=== PATIENT | female | born 1945 | race Caucasian/White ===

== ENCOUNTER 2021-07-26 13:31 | Inpatient (IN) | payer MEDICARE ==
[2021-07-26 14:39] LABS: #Eosinphils 0.3 thou/uL (0.0-0.7); #Lymphocytes 1.7 thou/uL (1.20-3.40); #Monocytes 1.3 thou/uL (0.11-0.59); #Neutrophils 7.7 thou/uL (1.40-6.50); %Basophils 0.3 % (0.0-1.0); %Eosinophils 2.9 % (0.0-10.0); %Lymphocytes 15.2 % (21.0-51.0); %Monocytes 11.4 % (0.0-10.0); %Neutrophils 70.2 % (42.0-75.0); Hemoglobin 14.2 g/dL (12.0-16.0); Mean Corpuscular HGB CONC 33.2 g/dL (32.0-36.0); Mean Corpuscular Hemoglobin 32.7 pg (27.0-31.0); Mean Corpuscular Volume 98.5 fL (78.0-98.0); Mean Platelet Volume 7.5 fL (7.4-10.4); Platelet Count 233 thou/uL (130-400); RBC Distribution Width 11.3 % (11.5-14.5); Red Blood Cell (RBC) Count 4.34 mill/uL (4.20-5.40)
[2021-07-26] MEDS ORDERED: Metoprolol Tartrate 5 MG/5 ML VIAL ONE (14:43)
[2021-07-26 14:47] LABS: INR-International Normal Ratio 1.1; Prothrombin Time 14.3 sec (12.0-14.7)
[2021-07-26 14:48] LABS: PTT 24.7 sec (22.9-36.1)
[2021-07-26 15:05] LABS: ALT (SGPT) 14 U/L (8-55); AST (SGOT) 13 U/L (5-34); Albumin 3.7 g/dL (3.4-4.8); Alkaline Phosphatase 42 U/L (40-110); Anion Gap 17 mmol/L (10-20); BUN (Urea Nitrogen) 13 mg/dL (9.8-20.1); Bilirubin, Total 0.6 mg/dL (0.2-1.2); Calc. Creatinine Clearance 0 mL/min (70-130); Calcium 9.5 mg/dL (7.8-10.44); Carbon Dioxide 21 mmol/L (23-31); Chloride 103 mmol/L (98-107); Globulin 3.5 g/dL (2.4-3.5); Glucose 148 mg/dL (83-110); Potassium 3.9 mmol/L (3.5-5.1); Protein, Total 7.2 g/dL (5.8-8.1); Sodium 137 mmol/L (136-145)
[2021-07-26 16:23] LABS: Bilirubin Negative (Negative); Blood, Urine Negative (Negative); Clarity Clear (Clear); Glucose, Urine (Dipstick) Normal (Negative); Ketone, Urine Negative (Negative); Leukocyte Negative Leu/uL (Negative); Nitrite Negative (Negative); Protein, Urine (Dipstick) Negative (Neg-Trace); Specific Gravity, Urine 1.035 (1.002-1.036); Urobilinogen Normal mg/dL (Less than 2); pH, Urine 7.5 (5.0-9.0)
[2021-07-26 16:32] LABS: Amphetamine Not Detected (NotDetected); Barbiturates Screen Not Detected (NotDetected); Benzodiazepine Screen Not Detected (NotDetected); Cocaine Metabolite Screen Not Detected (NotDetected); Methadone Not Detected (NotDetected); Methamphetamine Not Detected (NotDetected); Opiate Screen Not Detected (NotDetected); Oxycodone Screen Not Detected (NotDetected); Phencyclidine (PCP) Not Detected (NotDetected); THC/Cannabinoid Screen Not Detected (NotDetected); Tricyclic Screen Not Detected (NotDetected)
[2021-07-26 16:37] LABS: Magnesium 1.9 mg/dL (1.6-2.6)
[2021-07-26 16:38] LABS: Acetaminophen Less than 6.0 mcg/mL (10.0-30.0); Alcohol Less than 10 mg/dL (Less than 10); Salicylate Less than 8.0 mg/dL (15.0-30.0)
[2021-07-26] MEDS ORDERED: Ondansetron ODT 4 MG TAB PO PRN (18:02)
[2021-07-26] MEDS ORDERED: hydrALAZINE 20 MG/ML VIAL SLOW IVP PRN (18:03)
[2021-07-26 18:29] VITALS: BMI 31.5
[2021-07-27 05:58] LABS: #Basophils 0.1 thou/uL (0.0-0.2); #Eosinphils 0.3 thou/uL (0.0-0.7); #Lymphocytes 1.7 thou/uL (1.20-3.40); #Monocytes 1.3 thou/uL (0.11-0.59); #Neutrophils 7.1 thou/uL (1.40-6.50); %Basophils 0.6 % (0.0-1.0); %Eosinophils 3.2 % (0.0-10.0); %Lymphocytes 15.9 % (21.0-51.0); %Monocytes 12.3 % (0.0-10.0); %Neutrophils 67.9 % (42.0-75.0); Hemoglobin 13.3 g/dL (12.0-16.0); Mean Corpuscular HGB CONC 33.4 g/dL (32.0-36.0); Mean Corpuscular Hemoglobin 32.7 pg (27.0-31.0); Mean Platelet Volume 7.5 fL (7.4-10.4); Platelet Count 234 thou/uL (130-400); RBC Distribution Width 11.3 % (11.5-14.5); Red Blood Cell (RBC) Count 4.08 mill/uL (4.20-5.40); White Blood Cell (WBC) Count 10.4 thou/uL (4.8-10.8)
[2021-07-27 06:16] LABS: Anion Gap 14 mmol/L (10-20); BUN (Urea Nitrogen) 11 mg/dL (9.8-20.1); Calc. Creatinine Clearance 86 mL/min (70-130); Calcium 9.2 mg/dL (7.8-10.44); Carbon Dioxide 24 mmol/L (23-31); Cardiac Risk 2.7 (Less than 4.5); Chloride 103 mmol/L (98-107); Cholesterol 128 mg/dl (< 200 Desired); Glucose 104 mg/dL (83-110); HDL Cholesterol 47 mg/dL (>60 Neg Risk); LDL Cholesterol, Calculated 66 mg/dL; Magnesium 1.9 mg/dL (1.6-2.6); Potassium 3.9 mmol/L (3.5-5.1); Sodium 137 mmol/L (136-145); Triglycerides 77 mg/dL (Less than 150)
[2021-07-27 06:20] LABS: Hemoglobin A1c 5.7 % (4.0-6.0)
[2021-07-27] MEDS ORDERED: Aspirin 300 MG Suppository PR SCH (09:00)
[2021-07-27] MEDS ORDERED: Aspirin 325 MG TAB PO SCH (09:45)
[2021-07-27 14:18] LABS: SARS-CoV-2 PCR by NAA Not Detected (NotDetected)
[2021-07-27] MEDS: Diltiazem 125 MG in Sodium Chloride 0.9% 100 ML IVPB SCH (19:56)
[2021-07-27] MEDS: Megestrol Acetate 40 MG TAB PO SCH (20:30)
[2021-07-27] MEDS: Atorvastatin Calcium 40 MG TAB PO SCH (20:30)
[2021-07-28 05:36] LABS: #Eosinphils 0.4 thou/uL (0.0-0.7); #Lymphocytes 1.5 thou/uL (1.20-3.40); #Monocytes 1.6 thou/uL (0.11-0.59); #Neutrophils 7.9 thou/uL (1.40-6.50); %Basophils 0.4 % (0.0-1.0); %Eosinophils 3.5 % (0.0-10.0); %Lymphocytes 13.1 % (21.0-51.0); %Monocytes 13.9 % (0.0-10.0); %Neutrophils 69.1 % (42.0-75.0); Hemoglobin 12.8 g/dL (12.0-16.0); Mean Corpuscular HGB CONC 33.3 g/dL (32.0-36.0); Mean Corpuscular Hemoglobin 32.7 pg (27.0-31.0); Mean Corpuscular Volume 98.2 fL (78.0-98.0); Mean Platelet Volume 7.1 fL (7.4-10.4); Platelet Count 222 thou/uL (130-400); RBC Distribution Width 11.4 % (11.5-14.5); White Blood Cell (WBC) Count 11.5 thou/uL (4.8-10.8)
[2021-07-28] MEDS: Levothyroxine Sodium 125 MCG TAB PO SCH (05:47)
[2021-07-28 05:55] LABS: Anion Gap 11 mmol/L (10-20); BUN (Urea Nitrogen) 10 mg/dL (9.8-20.1); Calc. Creatinine Clearance 90 mL/min (70-130); Calcium 9.1 mg/dL (7.8-10.44); Carbon Dioxide 26 mmol/L (23-31); Chloride 103 mmol/L (98-107); Glucose 116 mg/dL (83-110); Potassium 3.7 mmol/L (3.5-5.1); Sodium 136 mmol/L (136-145)
[2021-07-28 06:14] LABS: Free T4 (Free Thyroxine) 1.04 ng/dL (0.70-1.48); Thyroid Stimulating Hormone 0.1935 uIU/mL (0.35-4.94)
[2021-07-28] MEDS: Megestrol Acetate 40 MG TAB PO SCH ×2 (08:28→21:03)
[2021-07-28] MEDS: Clopidogrel Bisulfate 75 MG TAB PO SCH (08:28)
[2021-07-28] MEDS: Lisinopril 20 MG TAB PO SCH (08:28)
[2021-07-28] MEDS: Atenolol 50 MG TAB PO SCH (08:28)
[2021-07-28] MEDS: Diltiazem 125 MG in Sodium Chloride 0.9% 100 ML IVPB SCH (08:38)
[2021-07-28] MEDS ORDERED: Aspirin 325 MG TAB PO SCH (09:00)
[2021-07-28] MEDS: Atorvastatin Calcium 40 MG TAB PO SCH (21:03)
[2021-07-29] MEDS: Levothyroxine Sodium 125 MCG TAB PO SCH (05:40)
[2021-07-29] MEDS: Megestrol Acetate 40 MG TAB PO SCH ×2 (09:27→20:22)
[2021-07-29] MEDS: Aspirin 81 mg Enteric Coated Tablet PO SCH (09:28)
[2021-07-29] MEDS: Clopidogrel Bisulfate 75 MG TAB PO SCH (09:28)
[2021-07-29] MEDS: Lisinopril 20 MG TAB PO SCH (09:28)
[2021-07-29] MEDS ORDERED: Digoxin 0.5 MG/2 ML AMP SLOW IVP SCH (09:30)
[2021-07-29] MEDS ORDERED: Diltiazem 125 MG in Sodium Chloride 0.9% 100 ML IVPB SCH (09:30)
[2021-07-29] MEDS ORDERED: Atenolol 50 MG TAB PO SCH (09:45)
[2021-07-29] MEDS: Atenolol 50 MG TAB PO SCH (10:20)
[2021-07-29] MEDS: Atorvastatin Calcium 40 MG TAB PO SCH (20:22)
[2021-07-30] MEDS: Levothyroxine Sodium 125 MCG TAB PO SCH (05:15)
[2021-07-30] MEDS: Aspirin 81 mg Enteric Coated Tablet PO SCH (08:32)
[2021-07-30] MEDS: Clopidogrel Bisulfate 75 MG TAB PO SCH (08:32)
[2021-07-30] MEDS: Megestrol Acetate 40 MG TAB PO SCH ×2 (08:33→22:40)
[2021-07-30] MEDS: Lisinopril 20 MG TAB PO SCH (08:34)
[2021-07-30] MEDS ORDERED: Atenolol 50 MG TAB PO SCH (09:00)
[2021-07-30] MEDS ORDERED: Apixaban 5 MG TAB PO SCH ×2 (12:30→12:45)
[2021-07-30] MEDS: Aggrenox 200-25mg CAP PO SCH (22:40)
[2021-07-30] MEDS: Apixaban 5 MG TAB PO SCH (22:40)
[2021-07-30] MEDS: Atorvastatin Calcium 40 MG TAB PO SCH (22:40)
[2021-07-31] MEDS: Levothyroxine Sodium 125 MCG TAB PO SCH (06:32)
[2021-07-31] MEDS: Clopidogrel Bisulfate 75 MG TAB PO SCH (08:36)
[2021-07-31] MEDS: Lisinopril 20 MG TAB PO SCH (08:36)
[2021-07-31] MEDS: Aggrenox 200-25mg CAP PO SCH (08:36)
[2021-07-31] MEDS: Megestrol Acetate 40 MG TAB PO SCH (08:37)
[2021-07-31] MEDS: Apixaban 5 MG TAB PO SCH (08:37)
[2021-07-31 11:33] VITALS: TEMP 97.7
[2021-07-31] MEDS ORDERED: Atenolol 50 MG TAB PO SCH (12:00)
[2021-07-31 13:26] VITALS: BP 150/77
[2021-08-01] MEDS ORDERED: Atenolol 50 MG TAB PO SCH (09:00)
== END 2021-07-31 12:50 | disposition home health service (06) | DRG 65 ==
LOC: ERS 13:31 → NEURO 16:07
PROVIDERS: ADMIT Hospitalist; ATTEND Family Medicine
DX: I63.412 Cerebral infarction due to embolism of left middle cerebral artery (principal); I48.19 Other persistent atrial fibrillation; I10 Essential (primary) hypertension; I25.10 Atherosclerotic heart disease of native coronary artery without angina pectoris; E78.5 Hyperlipidemia, unspecified; R47.81 Slurred speech; R47.1 Dysarthria and anarthria; Z20.822 Contact with and (suspected) exposure to COVID-19; G93.9 Disorder of brain, unspecified; I65.21 Occlusion and stenosis of right carotid artery; R47.01 Aphasia; R29.702 NIHSS score 2; D72.829 Elevated white blood cell count, unspecified; F10.10 Alcohol abuse, uncomplicated; I25.2 Old myocardial infarction; Z79.82 Long term (current) use of aspirin; Z79.890 Hormone replacement therapy; Z79.899 Other long term (current) drug therapy
CPT/HCPCS: 36415; 36416; 70450; 70496; 70498; 70551; 71045; 80048; 80053; 80061; 80306; 80307; 81003; 83036; 83605; 83735; 83880; 84439; 84443; 84484; 85025; 85610; 85730; 93005; 96374; J1160; J3490; S0179; U0003; U0005

== ENCOUNTER 2021-09-22 12:13 | Outpatient (CLI) | payer MEDICARE ==
[2021-09-22 13:49] LABS: #Basophils 0.1 10x3/uL (0.0-0.2); #Eosinphils 0.6 10x3/uL (0.0-0.5); #Monocytes 1.3 10x3/uL (0.0-1.1); #Neutrophils 6.9 10x3/uL (1.5-8.4); %Basophils 0.9 % (0.0-2.0); %Eosinophils 5.8 % (0.0-6.0); %Monocytes 12.7 % (0.0-10.0); %Neutrophils 66.3 % (40.0-75.0); Hemoglobin 12.5 g/dL (12.0-15.5); Mean Corpuscular HGB CONC 31.9 g/dL (32.0-36.0); Mean Corpuscular Hemoglobin 31.2 pg (27.0-33.0); Mean Corpuscular Volume 97.8 fl (81.6-98.3); Mean Platelet Volume 10.8 fl (7.4-10.4); Platelet Count 228 10x3/uL (150-450); RBC Distribution Width 12.6 % (11.5-14.5); Red Blood Cell (RBC) Count 4.01 10x6/uL (3.90-5.03); White Blood Cell (WBC) Count 10.5 10x3/uL (3.5-10.5)
[2021-09-22 14:13] LABS: ALT (SGPT) 14 U/L (8-55); AST (SGOT) 17 U/L (5-34); Albumin 3.9 g/dL (3.4-4.8); Alkaline Phosphatase 45 U/L (40-110); Anion Gap 14 mmol/L (10-20); BUN (Urea Nitrogen) 13 mg/dL (9.8-20.1); Bilirubin, Total 0.8 mg/dL (0.2-1.2); Calc. Creatinine Clearance 0 mL/min (70-130); Calcium 8.8 mg/dL (7.8-10.44); Carbon Dioxide 25 mmol/L (23-31); Chloride 103 mmol/L (98-107); Globulin 3.1 g/dL (2.4-3.5); Glucose 130 mg/dL (83-110); Potassium 3.8 mmol/L (3.5-5.1); Sodium 138 mmol/L (136-145)
[2021-09-23 13:14] LABS: SARS-CoV-2 PCR by NAA DETECTED (NotDetected)
== END 2021-09-22 12:14 | disposition home or self-care (01) ==
LOC: LABBT 12:13
PROVIDERS: ATTEND Internal Medicine Cardiovascular Disease
DX: U07.1 COVID-19 (principal); Z01.818 Encounter for other preprocedural examination
CPT/HCPCS: 80053; 85025; 93005; U0003; U0005; 93010

== ENCOUNTER 2021-10-25 05:51 | Day surgery (SDC) | payer MEDICARE ==
[2021-10-20 12:47] VITALS: BMI 29.7
[2021-10-25] MEDS ORDERED: Heparin 10,000 UNITS/ 10 ML VIAL ONE (06:17)
[2021-10-25] MEDS ORDERED: Fentanyl 100 MCG/2 ML VIAL ONE (06:25)
[2021-10-25] MEDS ORDERED: Midazolam HCl 2 mg/2 ml Vial ONE (06:26)
[2021-10-25] MEDS ORDERED: Protamine Sulfate 50 MG/5 ML VIAL ONE (07:46)
[2021-10-25] MEDS ORDERED: hydrALAZINE 20 MG/ML VIAL ONE (07:46)
== END 2021-10-25 14:37 | disposition home or self-care (01) ==
LOC: CCL 05:51
PROVIDERS: ATTEND Internal Medicine Cardiovascular Disease
PROC: 4A023N7 Measurement of Cardiac Sampling and Pressure, Left Heart, Percutaneous Approach (ICD-10-PCS; principal; 2021-10-25)
PROC: B2111ZZ Fluoroscopy of Multiple Coronary Arteries using Low Osmolar Contrast (ICD-10-PCS; 2021-10-25)
PROC: B2181ZZ Fluoroscopy of Left Internal Mammary Bypass Graft using Low Osmolar Contrast (ICD-10-PCS; 2021-10-25)
PROC: B2131ZZ Fluoroscopy of Multiple Coronary Artery Bypass Grafts using Low Osmolar Contrast (ICD-10-PCS; 2021-10-25)
DX: R94.39 Abnormal result of other cardiovascular function study (principal); T82.857A Stenosis of other cardiac prosthetic devices, implants and grafts, initial encounter; I25.10 Atherosclerotic heart disease of native coronary artery without angina pectoris; I65.21 Occlusion and stenosis of right carotid artery; I48.0 Paroxysmal atrial fibrillation; E78.5 Hyperlipidemia, unspecified; I10 Essential (primary) hypertension; I25.2 Old myocardial infarction; E78.00 Pure hypercholesterolemia, unspecified; E03.9 Hypothyroidism, unspecified; Z86.73 Personal history of transient ischemic attack (TIA), and cerebral infarction without residual deficits; Z87.891 Personal history of nicotine dependence; Z79.01 Long term (current) use of anticoagulants; Z79.899 Other long term (current) drug therapy; Z95.1 Presence of aortocoronary bypass graft
CPT/HCPCS: 85347; 93459; 99152; 99153; J0360; J1644; J2250; J2720; J3010

== ENCOUNTER 2021-11-01 15:30 | Inpatient (IN) | payer MEDICARE ==
[2021-11-04] MEDS ORDERED: Bupivacaine PF 0.5% 30 ML VIAL ONE (06:27)
[2021-11-04] MEDS ORDERED: Heparin 5,000 UNITS/ML VIAL ONE (06:27)
[2021-11-04] MEDS ORDERED: Protamine Sulfate 50 MG/5 ML VIAL ONE (06:27)
[2021-11-04] MEDS ORDERED: EPINEPHrine 1 MG/ML AMP ONE (06:27)
[2021-11-04] MEDS ORDERED: Lidocaine 1% MPF 2 ML VIAL ONE (06:49)
[2021-11-04] MEDS ORDERED: Fentanyl 250 MCG/5 ML VIAL ONE (06:55)
[2021-11-04] MEDS ORDERED: Ondansetron ODT 4 MG TAB ONE (07:07)
[2021-11-04] MEDS ORDERED: ceFAZolin (BATCH) 2 GM/100 ML BAG ONE (07:13)
[2021-11-04] MEDS ORDERED: PROPOFOL 200 MG/20 ML VIAL ONE (07:45)
[2021-11-04] MEDS ORDERED: Lidocaine 1% PF 5 ML VIAL ONE (07:45)
[2021-11-04] MEDS ORDERED: Dexamethasone 20 MG/5 ML VIAL ONE (07:45)
[2021-11-04] MEDS ORDERED: Rocuronium Bromide 10 MG/ML (10ML VIAL) ONE (07:45)
[2021-11-04] MEDS ORDERED: Ondansetron PF 4 MG/2 ML Vial ONE (07:45)
[2021-11-04] MEDS ORDERED: GLYCOPYRROLATE/PF 0.2 MG/ML VIAL ONE (07:45)
[2021-11-04] MEDS ORDERED: Fentanyl 100 MCG/2 ML VIAL SLOW IVP PRN (08:48)
[2021-11-04] MEDS ORDERED: DOPamine 400 MG/D5W 250 ML 250 ML IVPB PRN (08:48)
[2021-11-04] MEDS ORDERED: niCARdipine 25 MG in Sodium Chloride 0.9% 250 ML 250 ML IVPB PRN (08:48)
[2021-11-04] MEDS ORDERED: Acetaminophen 325 MG TAB PO PRN (08:48)
[2021-11-04] MEDS ORDERED: Ondansetron PF 4 MG/2 ML Vial IVP PRN (08:48)
[2021-11-04] MEDS ORDERED: traMADol HCl 50 MG TAB PO PRN (08:48)
[2021-11-04] MEDS ORDERED: Non-Formulary Item 1 EACH (Latanoprost/Pf [Latanoprost 0.005% Eye Drop] 7.5 ML Drops) EA EYE SCH (09:00)
[2021-11-04] MEDS ORDERED: Non-Formulary Item 1 EACH (Levothyroxine Sodium [Levothyroxine] 125 MCG Capsule) PO SCH (09:00)
[2021-11-04] MEDS ORDERED: ceFAZolin 2 GM/Dextrose 50 ML 2 GM in Premix Bag 1 BAG IVPB SCH (09:00)
[2021-11-04] MEDS: Sodium Chloride 0.9% 1,000 ML IV SCH (10:08)
[2021-11-04 10:58] VITALS: BMI 30.9
[2021-11-04] MEDS: Lisinopril 20 MG TAB PO SCH ×2 (13:47→13:49)
[2021-11-04] MEDS: Atorvastatin Calcium 40 MG TAB PO SCH ×2 (13:47→13:49)
[2021-11-04] MEDS: Aspirin Chewable 81 MG TAB PO SCH ×2 (13:47→13:49)
[2021-11-04] MEDS ORDERED: hydrALAZINE 20 MG/ML VIAL ONE (15:40)
[2021-11-04] MEDS ORDERED: hydrALAZINE 20 MG/ML VIAL SLOW IVP PRN (15:42)
[2021-11-04] MEDS: CEFAZOLIN 2 GM, Admixture Fee 1 EACH in Sodium Chloride 0.9% 100 ML IVPB SCH ×2 (16:06→22:39)
[2021-11-04] MEDS ORDERED: FLU VACC QS2021-22(65YR UP)/PF 240 MCG/0.7 ML SYRINGE IM ONE (18:00)
[2021-11-04] MEDS: Latanoprost 0.005% Ophth Soln 2.5 ml Bottle EA EYE SCH (20:57)
[2021-11-05 00:53] VITALS: TEMP 98.2
[2021-11-05] MEDS: Sodium Chloride 0.9% 1,000 ML IV SCH (04:47)
[2021-11-05] MEDS ORDERED: Levothyroxine Sodium 125 MCG TAB PO SCH (06:00)
[2021-11-05] MEDS: CEFAZOLIN 2 GM, Admixture Fee 1 EACH in Sodium Chloride 0.9% 100 ML IVPB SCH (07:41)
[2021-11-05] MEDS: Atorvastatin Calcium 40 MG TAB PO SCH (09:09)
[2021-11-05] MEDS: Aspirin Chewable 81 MG TAB PO SCH (09:09)
[2021-11-05] MEDS: Lisinopril 20 MG TAB PO SCH (09:09)
[2021-11-05] MEDS: Latanoprost 0.005% Ophth Soln 2.5 ml Bottle EA EYE SCH (09:10)
[2021-11-05 09:11] VITALS: BP 140/57
== END 2021-11-05 10:28 | disposition home or self-care (01) | DRG 39 ==
LOC: SURG A 11-04 05:33 → CCU 11-04 09:40
PROVIDERS: ADMIT Thoracic Surgery (Cardiothoracic Vascular Surgery); ATTEND Thoracic Surgery (Cardiothoracic Vascular Surgery)
PROC: 03CK0ZZ Extirpation of Matter from Right Internal Carotid Artery, Open Approach (ICD-10-PCS; principal; 2021-11-04)
PROC: 03UK0KZ Supplement Right Internal Carotid Artery with Nonautologous Tissue Substitute, Open Approach (ICD-10-PCS; 2021-11-04)
PROC: 3E03329 Introduction of Other Anti-infective into Peripheral Vein, Percutaneous Approach (ICD-10-PCS; 2021-11-04)
DX: I65.21 Occlusion and stenosis of right carotid artery (principal); I10 Essential (primary) hypertension; E78.5 Hyperlipidemia, unspecified; I48.91 Unspecified atrial fibrillation; M19.90 Unspecified osteoarthritis, unspecified site; F32.A Depression, unspecified; I25.10 Atherosclerotic heart disease of native coronary artery without angina pectoris; Z95.1 Presence of aortocoronary bypass graft; Z87.891 Personal history of nicotine dependence; Z90.710 Acquired absence of both cervix and uterus; Z79.82 Long term (current) use of aspirin; Z79.890 Hormone replacement therapy; Z79.01 Long term (current) use of anticoagulants; Z79.899 Other long term (current) drug therapy; Z01.812 Encounter for preprocedural laboratory examination
CPT/HCPCS: 80048; 85027; C1768; C1776; J0171; J0360; J0690; J1100; J1642; J1644; J2405; J2704; J2720; J3010; J3490; J7050; Q0162; S0020

== ENCOUNTER 2021-11-01 15:34 | Outpatient (CLI) | payer MEDICARE ==
[2021-11-01 16:39] LABS: Hemoglobin 12.1 g/dL (12.0-15.5); Mean Corpuscular HGB CONC 32.5 g/dL (32.0-36.0); Mean Corpuscular Hemoglobin 31.7 pg (27.0-33.0); Mean Corpuscular Volume 97.4 fl (81.6-98.3); Mean Platelet Volume 10.8 fl (7.4-10.4); Platelet Count 243 10x3/uL (150-450); RBC Distribution Width 13.8 % (11.5-14.5); Red Blood Cell (RBC) Count 3.82 10x6/uL (3.90-5.03); White Blood Cell (WBC) Count 9.7 10x3/uL (3.5-10.5)
[2021-11-01 17:17] LABS: Anion Gap 13 mmol/L (10-20); BUN (Urea Nitrogen) 10 mg/dL (9.8-20.1); Calc. Creatinine Clearance 0 mL/min (70-130); Calcium 9.2 mg/dL (7.8-10.44); Carbon Dioxide 25 mmol/L (23-31); Chloride 104 mmol/L (98-107); Glucose 106 mg/dL (83-110); Potassium 4.2 mmol/L (3.5-5.1); Sodium 138 mmol/L (136-145)
== END 2021-11-01 15:35 | disposition home or self-care (01) ==
LOC: LABBT 15:34
PROVIDERS: ATTEND Thoracic Surgery (Cardiothoracic Vascular Surgery)
DX: Z01.812 Encounter for preprocedural laboratory examination (principal)
CPT/HCPCS: 80048; 85027

== ENCOUNTER 2023-03-01 08:00 | Outpatient (CLI) | payer MEDICARE ==
[2023-03-01] MEDS ORDERED: Iopamidol 370 76% 100 ML VIAL ONE (12:23)
== END 2023-03-01 08:01 | disposition home or self-care (01) ==
LOC: CT 08:00
PROVIDERS: ATTEND Urology
DX: N28.89 Other specified disorders of kidney and ureter (principal); N28.0 Ischemia and infarction of kidney; R91.8 Other nonspecific abnormal finding of lung field; M19.012 Primary osteoarthritis, left shoulder
CPT/HCPCS: 71260; 74178; 78306; 82565; A9503; Q9967

== ENCOUNTER 2023-05-12 06:34 | Day surgery (SDC) | payer MEDICARE ==
[2023-05-08 08:14] VITALS: BMI 30.8
[2023-05-12 08:07] LABS: #Basophils 0.1 thou/uL (0.0-0.2); #Eosinphils 0.5 thou/uL (0.0-0.7); #Monocytes 1.2 thou/uL (0.11-0.59); #Neutrophils 5.7 thou/uL (1.40-6.50); %Basophils 1.3 % (0.0-1.0); %Eosinophils 5.3 % (0.0-10.0); %Lymphocytes 20.1 % (21.0-51.0); %Monocytes 12.3 % (0.0-10.0); %Neutrophils 60.5 % (42.0-75.0); Hemoglobin 12.9 g/dL (12.0-16.0); Mean Corpuscular HGB CONC 33.1 g/dL (32.0-36.0); Mean Corpuscular Hemoglobin 32.6 pg (27.0-31.0); Mean Corpuscular Volume 98.5 fl (78.0-98.0); Mean Platelet Volume 10.8 fL (7.4-10.4); Platelet Count 217 10x3/uL (130-400); RBC Distribution Width 13.2 % (11.5-14.5); Red Blood Cell (RBC) Count 3.96 mill/uL (4.20-5.40); White Blood Cell (WBC) Count 9.4 10x3/uL (4.8-10.8)
[2023-05-12 08:21] LABS: PTT 29.2 sec (22.9-36.1); Prothrombin Time 13.7 sec (12.0-14.7)
[2023-05-12] MEDS ORDERED: Iopamidol 370 76% 100 ML VIAL ONE (11:04)
== END 2023-05-12 13:00 | disposition home or self-care (01) ==
LOC: CT 06:34
PROVIDERS: ATTEND Urology
DX: C64.2 Malignant neoplasm of left kidney, except renal pelvis (principal); I25.10 Atherosclerotic heart disease of native coronary artery without angina pectoris; I73.9 Peripheral vascular disease, unspecified; Z86.73 Personal history of transient ischemic attack (TIA), and cerebral infarction without residual deficits; Z87.891 Personal history of nicotine dependence
CPT/HCPCS: 50200; 74170; 77012; 82565; 85025; 85610; 85730; 88305; 88333; 88341; 88342; Q9967

== ENCOUNTER → 2024-07-03 | Day surgery (SDC) | payer MEDICARE ==
[2024-07-02 10:38] VITALS: BMI 30.2
== END ==
LOC: SDC 06:40
PROVIDERS: ATTEND Internal Medicine Cardiovascular Disease
DX: I48.0 Paroxysmal atrial fibrillation (principal); Z53.8 Procedure and treatment not carried out for other reasons; I42.9 Cardiomyopathy, unspecified; E03.9 Hypothyroidism, unspecified; N28.0 Ischemia and infarction of kidney; I25.10 Atherosclerotic heart disease of native coronary artery without angina pectoris; I21.4 Non-ST elevation (NSTEMI) myocardial infarction; N28.89 Other specified disorders of kidney and ureter; I63.9 Cerebral infarction, unspecified; I65.21 Occlusion and stenosis of right carotid artery; E78.00 Pure hypercholesterolemia, unspecified; Z87.891 Personal history of nicotine dependence; Z95.5 Presence of coronary angioplasty implant and graft; Z95.1 Presence of aortocoronary bypass graft; Z79.01 Long term (current) use of anticoagulants; Z79.82 Long term (current) use of aspirin; Z79.899 Other long term (current) drug therapy
CPT/HCPCS: 93005; 93010

== ENCOUNTER 2025-07-12 12:29 | Inpatient (IN) | payer MEDICARE, OTHER ==
[2025-07-12] MEDS ORDERED: Acetaminophen 325 MG TAB PO PRN (12:45)
[2025-07-12] MEDS ORDERED: Ondansetron PF 4 MG/2 ML Vial IVP PRN (12:45)
[2025-07-12] MEDS ORDERED: Scopolamine 1 mg/72 hour Patch TOP PRN (12:45)
[2025-07-12 13:48] VITALS: BMI 27.8
[2025-07-13] MEDS: Glycopyrrolate 0.4 MG/ 2 ML VIAL SLOW IVP PRN (10:51)
[2025-07-13 19:28] VITALS: BP 80/53; TEMP 97.4
== END 2025-07-13 20:10 | disposition expired | DRG 951 ==
LOC: IMCU/EMU 12:29 → T4-A 21:17
PROVIDERS: ADMIT Family Medicine; ATTEND Family Medicine
DX: Z51.5 Encounter for palliative care (principal); J96.01 Acute respiratory failure with hypoxia; A41.9 Sepsis, unspecified organism; I48.91 Unspecified atrial fibrillation; I25.10 Atherosclerotic heart disease of native coronary artery without angina pectoris; E78.5 Hyperlipidemia, unspecified; E03.9 Hypothyroidism, unspecified; I10 Essential (primary) hypertension; Z98.890 Other specified postprocedural states; Z95.1 Presence of aortocoronary bypass graft; Z79.899 Other long term (current) drug therapy
CPT/HCPCS: J2060; J2270